=== PATIENT | female | born 1980 | race Caucasian/White ===

== ENCOUNTER 2018-10-09 15:30 | Emergency (ER) | payer OTHER ==
[~2018-10-09] VITALS: Ht 170.2 cm; Wt 70.5 kg
[~2018-10-09 15:30] MED LIST: ACET500C5 PO; CEPH-443 PO; PREN-93 PO
[2018-10-09 15:37] VITALS: Ht 170.2 cm; Wt 70.5 kg
[2018-10-09] MEDS ORDERED: ACETAMINOPHEN 325 MG TAB PO STA (16:08)
[2018-10-09 19:39] VITALS: BP 122/68; PULSE 67; RESP 16
== END 2018-10-09 19:40 | disposition home or self-care (01) ==
LOC: FTE 15:30
DX: O26.891 Other specified pregnancy related conditions, first trimester (principal); O34.11 Maternal care for benign tumor of corpus uteri, first trimester; O23.41 Unspecified infection of urinary tract in pregnancy, first trimester; O99.331 Smoking (tobacco) complicating pregnancy, first trimester; F17.210 Nicotine dependence, cigarettes, uncomplicated; R10.2 Pelvic and perineal pain; Z3A.01 Less than 8 weeks gestation of pregnancy
CPT/HCPCS: 76801; 76817; 81001; 84702; 85025; 86900; 86901; Z7610; 36415

== ENCOUNTER 2018-10-15 23:24 | Emergency (ER) | payer OTHER ==
[~2018-10-15] VITALS: Ht 170.2 cm; Wt 69.3 kg
[2018-10-15 23:47] VITALS: Ht 170.2 cm; Wt 69.3 kg
[2018-10-16] MEDS ORDERED: ACETAMINOPHEN 500 MG TAB PO STA (01:40)
[2018-10-16 04:46] VITALS: BP 114/72; PULSE 71; RESP 18
== END 2018-10-16 04:47 | disposition home or self-care (01) ==
LOC: FTE 23:24
DX: O34.11 Maternal care for benign tumor of corpus uteri, first trimester (principal); O26.891 Other specified pregnancy related conditions, first trimester; R10.2 Pelvic and perineal pain; O23.41 Unspecified infection of urinary tract in pregnancy, first trimester; Z3A.01 Less than 8 weeks gestation of pregnancy
CPT/HCPCS: 36415; 76801; 76817; 80053; 81001; 82150; 83690; 84702; 85025; 86900; 86901; 87086; Z7502; Z7610